=== PATIENT | male | born 1960 | race Caucasian/White ===

== ENCOUNTER 2016-05-13 17:20 | Emergency (ER) | payer SELFPAY ==
[~2016-05-13] VITALS: Ht 170.2 cm; Wt 82.0 kg
[2016-05-13] MEDS ORDERED: NITROGLYCERIN OINT 1GM/INCH UDPKT TD STA (17:50)
[2016-05-13] MEDS ORDERED: ASPIRIN 81MG TABLET PO STA (17:50)
[2016-05-13] MEDS ORDERED: MORPHINE SULFATE 4 MG/ML CPJ (NOT FOR IM USE) IV STA (17:50)
[2016-05-13] MEDS ORDERED: ASPIRIN 325MG TABLET ONE (17:56)
[2016-05-13] MEDS ORDERED: NITROGLYCERIN OINT 1GM/INCH UDPKT TD ONE (17:57)
[2016-05-13] MEDS ORDERED: HEPARIN 5000 UNITS/ML VIAL IV ONE (18:00)
[2016-05-13] MEDS ORDERED: CLOPIDOGREL 75MG TABLET PO ONE (18:00)
[2016-05-13] MEDS ORDERED: METOPROLOL TARTRATE 5MG/5ML VIAL IV ONE (18:04)
[2016-05-13] MEDS ORDERED: ONDANSETRON HCL 4MG/2ML VIAL IV ONE (18:15)
[2016-05-13 18:20] VITALS: BP 138/93
[2016-05-13 18:20] LABS: BASOPHILS % 0.4 % (0.0-2.0); EOSINOPHILS % 0.3 % (0.0-5.0); HEMATOCRIT. 45.5 % (42.0-52.0); HEMOGLOBIN. 15.4 g/dL (14.0-18.0); LYMPHOCYTES % 44.2 % (20.0-50.0); MEAN CORPUSCULAR HEMOGLOBIN 30.6 pg (28.0-32.0); MEAN CORPUSCULAR HGB CONC 33.9 g/dL (31.0-37.0); MEAN CORPUSCULAR VOLUME 90.2 fL (80.0-94.0); MEAN PLATELET VOLUME 8.3 fl (7.4-10.4); MONOCYTES % 7.2 % (2.0-8.0); NEUTROPHILS % 47.9 % (40.0-76.0); PLATELET 283 x1000/uL (130-400); RED BLOOD CELL COUNT 5.05 mill/uL (4.7-6.1); RED CELL DISTRIBUTION WIDTH 13.3 % (11.6-14.6); WHITE BLOOD COUNT 12.9 x1000/uL (4.5-11.0)
[2016-05-13 18:27] LABS: INR 1.1; PARTIAL THROMBOPLASTIN TIME 23.1 sec (24.0-34.0); PROTHROMBIN TIME 11.2 sec
[2016-05-13 18:32] LABS: ALANINE AMINOTRANSFERASE 54 IU/L (13-61); ALBUMIN 4.1 g/dL (3.4-5.0); ANION GAP 17; CALCIUM 8.9 mg/dL (8.5-10.1); CARBON DIOXIDE 25 mEq/L (21-32); CHLORIDE 99 mEq/L (98-107); INDEX HEMOLYSI 3 (1-3); INDEX ICTERIC 1 (1-4); INDEX LIPEMIC 1 (1-3); LIPASE 930 IU/L (73-393); UREA NITROGEN BLOOD 11 mg/dL (7-21); eGFR > 60 mL/min (>60)
[2016-05-13 18:35] LABS: TROPONIN I 0.13 ng/mL (0.00-0.04)
== END 2016-05-13 18:51 | disposition short-term general hospital (02) ==
LOC: ER 17:51
DX: I21.3 ST elevation (STEMI) myocardial infarction of unspecified site (principal); E11.9 Type 2 diabetes mellitus without complications; J44.9 Chronic obstructive pulmonary disease, unspecified; J98.11 Atelectasis
CPT/HCPCS: 36415; 71010; 80053; 83690; 84484; 85025; 85610; 85730; 93005; 96374; 96375; 99291; J1644; J2270; J2405; J3490; Z7610